=== PATIENT | female | born 1990 | race Caucasian/White ===

== ENCOUNTER 2024-06-30 15:30 | Emergency (ER) | payer OTHER, SELFPAY ==
[2024-06-30 15:32] VITALS: BP 114/66
[2024-06-30 15:48] LABS: % Basophils 0.4 % (0-2); % Eosinophils 2.5 % (0-6); % Immature Granulocytes 0.2 % (0-0.5); % Lymphocytes 25.2 % (20.5-51.1); % Monocytes 8.3 % (1.7-9.3); % Neutrophils 63.4 % (42.2-75.2); Absolute Eosinophils 0.1 10^3/uL (0-0.7); Absolute Lymphocytes 1.3 10^3/uL (1.2-3.4); Absolute Monocytes 0.4 10^3/uL (0.1-0.6); Absolute Neutrophils 3.4 10^3/uL (1.4-6.5); Hematocrit 36.5 % (37.0-47.0); Hemoglobin 12.6 g/dL (12.0-16.0); Mean Corp Hgb Conc. 34.5 g/dL (33.0-37.0); Mean Corpuscular Volume 89.7 fL (81.0-99.0); Nucleated Red Blood Cells % 0 %; Platelet Count 242 10^3/uL (130-400); Red Blood Cell Count 4.07 10^6/uL (4.20-5.40); Red Cell Dist. Width 13.2 % (11.5-14.5); White Blood Cell Count 5.3 10^3/uL (4.8-10.8)
[2024-06-30 16:00] LABS: HCG, Serum Qualitative Screen Negative
[2024-06-30 16:03] LABS: ALT (SGPT) 24 U/L (0-35); AST (SGOT) 29 U/L (14-36); Albumin 4.2 g/dl (3.5-5.0); Alkaline Phosphatase 67 U/L (38-126); Blood Urea Nitrogen 11 mg/dl (7-17); Carbon Dioxide 25 mmol/L (22-30); Chloride 103 mmol/L (98-107); Glucose 91 mg/dl (70-99); Lipase 40 U/L (23-300); Potassium 4.1 mmol/L (3.5-5.1); Sodium 135 mmol/L (135-145); Total Bilirubin 0.6 mg/dl (0.2-1.3); Total Protein 6.7 g/dl (6.3-8.2); eGFR > 60.00
[2024-06-30 17:29] LABS: Urine Albumin Negative (Neg - Trace); Urine Bilirubin Negative (Negative); Urine Character Clear (Clear); Urine Glucose Negative (Negative); Urine Ketone Negative (Negative); Urine Leukocyte Negative (Negative); Urine Nitrite Negative (Negative); Urine Occult Blood Negative (Negative); Urine Urobilinogen Negative (Neg - 1+)
[2024-06-30 17:30] LABS: Urine Color Straw
--- NOTE | 2024-06-30 19:54 | ED.GENMED ---
History of Present Illness
General
Chief Complaint: Abdominal Pain
Source: patient
Exam Limitations: none
Time Seen by Provider: 06/30/24 19:24
History of Present Illness
History of Present Illness:
33yoF with a history of fibromyalgia, panic disorder, and anxiety presenting with her for evaluation of abdominal pain. Symptoms began 1 week ago while she was in [facility] for her honeymoon. The pain was initially mild but has been
gradually worsening. She reports a cramping sensation throughout her lower abdomen which radiates to the low back. The pain seems to be worse on the left side today. She also has some pain in her upper thighs and left shoulder. She has had
low-grade fevers of 99 at home. She reports nausea but denies vomiting. No diarrhea, dysuria, vaginal bleeding, vaginal discharge. Last bowel movement was earlier today. Previous abdominal surgeries include an appendectomy.
Phy Exam
Physical Exam
Physical Exam:
Anxious, tearful
General Physical Exam
General Presentation: well appearing
General age: appears stated age
General Skin: warm and dry
General Habitus: normal
General Mental: alert and anxious
ENT Exam
ENT Exam: normocephalic
Cardiovascular Exam
Cardiovascular Exam: regular rate/rhythm and no murmur
Pulmonary Exam
Pulmonary Exam: lungs clear, no respiratory distress, no rales, no crackles and no rhonchi
Gastrointestinal Exam
Gastrointestinal Exam: soft, non distended, no cva tenderness and other (+Tenderness throughout lower abdomen, worse in LLQ. Abdomen soft, non-distended. No rebound or guarding. )
Neurological Exam
Neurological Exam: alert
[place] Coma Scale
Eye Opening: Spontaneous
Verbal Response: Oriented
Motor Response: Obeys Commands
GCS Total Score: 15
Skin Exam
Skin Exam: normal color and warm/dry
Psychiatric Exam
Psychiatric Exam: anxious
Course
Orders/Labs/Results
Orders:
Orders
06/30/24 15:37
Test Result ONCE
06/30/24 15:42
Complete Blood Count/With Diff Urgent
Comprehensive Metabolic Panel Urgent
HCG, Serum Qualitative Screen Urgent
Comment: Notify provider if positive test present
Lipase Urgent
06/30/24 17:15
Urinalysis Reflex To Culture Urgent
Date Specimen was Collected: 06/30/24
Time Specimen was Collected: 17:12
06/30/24 19:53
0.9% Sodium Chloride 500 ml [Nss] 500 ml IV BOLUS
Iohexol [Omnipaque] See Protocol PO NOW STA
Ketorolac [Toradol] 15 mg IV NOW STA
06/30/24 19:54
CT Abd/pel W Iv And Oral Contr Urgent
Comment:
Reason For Exam: Lower abd pain, back pain
06/30/24 20:56
COVID-19 Antigen Urgent
Source: Nasal Swab
Influenza A+B Rapid Molecular Urgent
MAGDIEL Source: Nasal Swab
Specimen Description:
06/30/24 21:18
Ondansetron Injectable [Zofran] 4 mg IV NOW STA
06/30/24 21:43
Morphine Sulfate 4 mg .ROUTE .STK-MED ONE
06/30/24 21:48
Morphine Sulfate 4 mg IV NOW STA
06/30/24 21:49
Morphine Sulfate 2 mg IV NOW STA
06/30/24 23:46
Enema- Treatment ONCE
Type: Milk of Molasses
07/01/24 01:43
Lactulose [Duphalac/Chronulac] 20 grams PO ONCE ONE
Abnormal Lab Results
06/30/24
15:42
RBC 4.07 L 10^6/uL
(4.20-5.40)
Hct 36.5 L %
(37.0-47.0)
06/30/24 15:42
06/30/24 15:42
Vital Signs
Initial and Last Documented VS:
Initial Vital Signs
Temp Pulse Resp BP Pulse Ox
97.9 F 68 16 114/66 98
06/30/24 15:32 06/30/24 15:32 06/30/24 15:32 06/30/24 15:32 06/30/24 15:32
Last Documented Vital Signs
Temp Pulse Resp BP Pulse Ox
97.9 F 47 16 107/59 97
06/30/24 15:32 06/30/24 20:32 06/30/24 20:32 06/30/24 20:32 06/30/24 20:32
MDM/Problems Addressed
Differential Diagnosis Includes:
33yoF here with lower abdominal pain x 1 week that is worsening. Radiates to lower back. Patient is afebrile and hemodynamically stable. She is anxious and tearful during exam. No signs of peritonitis on abdominal exam. Differential diagnosis
includes but is not limited to: Diverticulitis, ovarian cyst, UTI, colitis, constipation, musculoskeletal, nonspecific abdominal
Initial ED plan: Abdominal labs, hCG, and UA obtained in triage. Labs unremarkable including normal white count. hCG negative. UA bland without signs of infection. Will proceed with CT abdomen with IV/PO contrast. IV Toradol and fluid bolus for
symptoms.
*Critical Care Note
Total Time (30-74mins, 75-104mins- exclusive of procedures): Not Applicable
Update Note
Update Note:
Preliminary vision radiology report for CT scan shows large amount of stool in the colon. There is also mild urinary bladder wall thickening although urinalysis is normal. No other acute findings noted. Patient with persistent discomfort on
reassessment. She was given a milk of molasses enema and was able to have 2 small bowel movements. No indication for hospitalization at this time. Patient reports continued discomfort, will give dose of lactulose to go home with. Supportive care
discussed. She was advised to follow-up with her PCP and GI. ED return precautions discussed. Patient discharged in stable condition.
ED Attending Note
-
Portions of this chart may have been created with voice recognition software.� Occasional wrong word or��sound alike� substitutions may have occurred due to the inherent limitations of voice recognition software.
Discharge Plan
Departure
Patient Disposition: Home (Routine Discharge)
Date of Disposition: 07/01/24
Time of Disposition: 01:44
Patient with high blood pressure during this ER visit?: No
Discharge Problem:
Constipation, Lower abdominal pain
Referrals:
Laurence Romero DO [Family Provider] -
Diandra Cason MD [Active] -
Activity Restrictions/Additional Instructions:
Take lactulose dose when you get home. Increase your Miralax to twice daily until bowel movements regulate.
Please follow-up with your family doctor and gastroenterology. Return to the ER with any new or worsening symptoms.
Interventions
Interventions:
*Risk Screen - Suicide Last Done: 06/30/24 15:32
*General Assessment Last Done: 06/30/24 15:32
*Neglect/Abuse Screening Last Done: 07/01/24 02:16
ED- Fall Risk Assessment Last Done: 06/30/24 20:00
*ED COVID-19 Vaccine History Last Done: 06/30/24 15:32
*Nursing Disposition Last Done: 07/01/24 02:16
UV-Jofjgh-Hogldxgurp Assessment Last Done: 06/30/24 20:00
Discharge Date and Time
Discharge Date/Time: 07/01/24 02:17
Print Language: RUSSIAN
[2024-06-30] MEDS: OMNIPAQUE 50 ML PO (20:15)
[2024-06-30] MEDS: NSS 500 IV (20:15)
[2024-06-30] MEDS: TORADOL 15 MG IV (20:15)
[2024-06-30 20:32] VITALS: BP 107/59; BMI 19.0
[2024-06-30 21:18] LABS: COVID-19 Antigen Negative (Negative)
[2024-06-30] MEDS: ZOFRAN 4 MG IV (21:32)
--- NOTE | 2024-06-30 21:40 | EDRN ---
Patient was nauseated so gave Zofran, however re reports that the toradol did not help at all, spoke with provider who will order more medications.
[2024-06-30] MEDS: MORPHINE SULFATE 2 MG IV (21:50)
--- NOTE | 2024-07-01 01:05 | EDRN ---
Patient had 2 small bowl movements, slightly tearful with at bedside, reports if tests look ok she is ok to go home, will update provider.
[2024-07-01] MEDS: DUPHALAC/CHRONULAC 20 GRAMS PO (01:55)
== END 2024-07-01 02:17 | disposition home or self-care (01) ==
LOC: EMR 15:30
PROVIDERS: Emergency Medicine; Physician Assistant; Student in an Organized Health Care Education/Training Program; EMERGENCY PHYSICIAN Student in an Organized Health Care Education/Training Program; FAMILY PHYSICIAN Family Medicine
DX: K59.00 Constipation, unspecified (principal); R10.30 Lower abdominal pain, unspecified; Z11.52 Encounter for screening for COVID-19
CPT/HCPCS: 99285; 96374; 96375 ×2; 96361; 74177; 80053; 81003; 83690; 84703; 85025; 87502; 87811; Q9967

== ENCOUNTER 2024-07-03 16:19 | Emergency (ER) | payer OTHER, SELFPAY ==
[2024-07-03 16:49] VITALS: BP 111/66
--- NOTE | 2024-07-03 16:50 | ED.GENMED ---
ED Provider Triage
<Tanvir Rod PA-C - Last Filed: 07/03/24 16:51>
-
Patient seen by provider in Triage?: Seen in Triage
Attestation: A medical screening examination has been initiated by a qualified medical provider. Based on the assessment performed at this time, it has been determined that an emergent medical condition may exist and the patient has been informed
that further medical evaluation and possible additional diagnostic testing may be needed.
HPI: 33-year-old female presenting back to the emergency department for reevaluation of recurring abdominal pain. Patient seen in the ER 3 days ago for the same and was diagnosed with constipation. Received enema and laxatives here. Reportedly
felt a little bit better but symptoms restarted and worsened over the last 24 hours. Had a virtual visit with primary care provider today and was recommended to come back to the ER. Patient had CT done at her last visit here. Previous
appendectomy. Labs ordered.
GENERAL: Alert , in no apparent distress
EYE: No visual abnormalities.
NECK: Trachea midline
ENT: No visible abnormalities.
LUNGS: No acute respiratory distress
NEUROLOGICAL: Alert and oriented
SKIN: Skin intact. No visible changes.
MUSCULOSKELETAL: Moving extremities normally
PSYCH: Normal and appropriate interaction.
This is a medical evaluation conducted in person to initiate diagnostic evaluation and provide initial therapeutics. Please see further documentation by the treating clinician. 33-year-old female presenting to the ER for reevaluation after being
seen this past Tuesday
History of Present Illness
<Tanvir Rod PA-C - Last Filed: 07/03/24 16:51>
General
Chief Complaint: Abdominal Symptoms
Time Seen by Provider: 07/03/24 20:54
<Bailey Driver NP - Last Filed: 07/03/24 23:59>
General
Source: patient and spouse
Exam Limitations: none
Nursing documentation reviewed up to this point in time: agreed with
History of Present Illness
History of Present Illness:
33-year-old female with history of fibromyalgia, chronic constipation, chronic pain 'all over my body,' presenting with retching and abdominal pain.
She states abdominal pain started on 06/23 while in [facility] on her honeymoon, started with nausea and then the abdominal pain, and states that on her lower back. She has had similar abdominal pain in the past but it is usually in her upper
abdomen What is new, she states, is that the abdominal pain is now all over including her lower abdomen and dry heaving however looking at her record from 3 days ago there was both lower abdominal pain, low back pain with nausea, similar to today.
Patient was here 3 days ago for abdominal pain and diagnosed with constipation. She states she has been having daily small BMs since the mild and molasses enema she received that visit. Given a dose of Lactulose at discharge to take home.
Past History
<Bailey Driver, INTEGRITY ANALYST - Last Filed: 07/03/24 23:59>
Past History
ED Past Medical History: Fibromyalgia and Psychiatric (PTSD, panic disorder)
ED Past Surgical History: Appendectomy and Gynecological (D&C)
Social History
Tobacco: Non-smoker
Alcohol: None
Personal:
Living: with family
Employment: Not employed (due to chronic pain)
Review of Systems
<Bailey Driver, INTEGRITY ANALYST - Last Filed: 07/03/24 23:59>
Review of Systems
Allergies reviewed?: Yes
All Other Systems: ROS reviewed and negative except as documented in HPI and ROS
Constitutional: Denies fever
Respiratory: Denies trouble breathing
Cardiac: Denies chest pain
ABD/GI: Reports abdominal pain, nausea and constipated; Denies vomiting or diarrhea
: Denies dysuria, frequency, difficulty voiding or urgency
Musculoskeletal: Reports other (Chronic generalized pain)
Skin: Reports no symptoms
Neurological: Reports no symptoms
Phy Exam
<Bailey V. Day, INTEGRITY ANALYST - Last Filed: 07/03/24 23:59>
Physical Exam
Physical Exam:
GENERAL: Crying, moaning at times, no tears. A&Ox3.
CONSTITUTIONAL: Afebrile.
EYES: clear, conjunctivae normal
ENMT: moist mucus membranes
RESPIRATORY: Regular respirations, nonlabored, lungs clear.
CARDIOVASCULAR: Regular rate and rhythm, no murmurs, no rubs.
GI: Soft, generally tender to palpations, nondistended, normal BS
Rectal: no stool in rectal vault
MUSCULOSKELETAL: Moves with ease. Well perfused.
SKIN: Warm, dry, pink
PSYCH: Anxious mood and affect. Well kept
NEUROLOGIC: Awake, alert and oriented. No focal neurological deficits
Course
<Tanvir Rod PA-C - Last Filed: 07/03/24 16:51>
Orders/Labs/Results
Orders:
Orders
07/03/24 16:49
CR Obstruct Series W/pa Chest Urgent
Comment:
Reason For Exam: recurring abd pain, recent CT, constipation
07/03/24 16:50
Test Result ONCE
07/03/24 17:07
Complete Blood Count/With Diff Urgent
Comprehensive Metabolic Panel Urgent
HCG, Serum Qualitative Screen Urgent
Lipase Urgent
07/03/24 21:26
Ondansetron Injectable [Zofran] 4 mg IV NOW STA
07/03/24 21:27
0.9% Sodium Chloride 1000 ml [Nss] 1,000 ml IV BOLUS
07/03/24 21:37
Ketorolac [Toradol] 15 mg IV NOW STA
07/03/24 22:50
Magnesium Citrate [Citroma] 300 ml PO ONCE ONE
Abnormal Lab Results
07/03/24
17:07
WBC 3.7 L 10^3/uL
(4.8-10.8)
RBC 4.18 L 10^6/uL
(4.20-5.40)
Monocytes % 11.0 H %
(1.7-9.3)
BUN 6 L mg/dl
(7-17)
07/03/24 17:07
07/03/24 17:07
Vital Signs
Initial and Last Documented VS:
Initial Vital Signs
Temp Pulse Resp BP Pulse Ox
98.7 F 62 20 111/66 99
07/03/24 16:49 07/03/24 16:49 07/03/24 16:49 07/03/24 16:49 07/03/24 16:49
Last Documented Vital Signs
Temp Pulse Resp BP Pulse Ox
97.8 F 41 20 127/67 98
07/03/24 20:55 07/03/24 23:14 07/03/24 16:49 07/03/24 23:14 07/03/24 23:14
<Bailye Driver, INTEGRITY ANALYST - Last Filed: 07/03/24 23:59>
Orders/Labs/Results
Orders:
Orders
07/03/24 16:49
CR Obstruct Series W/pa Chest Urgent
Comment:
Reason For Exam: recurring abd pain, recent CT, constipation
07/03/24 16:50
Test Result ONCE
07/03/24 17:07
Complete Blood Count/With Diff Urgent
Comprehensive Metabolic Panel Urgent
HCG, Serum Qualitative Screen Urgent
Lipase Urgent
07/03/24 21:26
Ondansetron Injectable [Zofran] 4 mg IV NOW STA
07/03/24 21:27
0.9% Sodium Chloride 1000 ml [Nss] 1,000 ml IV BOLUS
07/03/24 21:37
Ketorolac [Toradol] 15 mg IV NOW STA
07/03/24 22:50
Magnesium Citrate [Citroma] 300 ml PO ONCE ONE
Abnormal Lab Results
07/03/24
17:07
WBC 3.7 L 10^3/uL
(4.8-10.8)
RBC 4.18 L 10^6/uL
(4.20-5.40)
Monocytes % 11.0 H %
(1.7-9.3)
BUN 6 L mg/dl
(7-17)
07/03/24 17:07
07/03/24 17:07
Vital Signs
Initial and Last Documented VS:
Initial Vital Signs
Temp Pulse Resp BP Pulse Ox
98.7 F 62 20 111/66 99
07/03/24 16:49 07/03/24 16:49 07/03/24 16:49 07/03/24 16:49 07/03/24 16:49
Last Documented Vital Signs
Temp Pulse Resp BP Pulse Ox
97.8 F 41 20 127/67 98
07/03/24 20:55 07/03/24 23:14 07/03/24 16:49 07/03/24 23:14 07/03/24 23:14
<Bailey Driver, INTEGRITY ANALYST - Last Filed: 07/03/24 23:59>
MDM/Problems Addressed
Differential Diagnosis Includes:
exacerbation of chronic abdominal pain
MDM/Problems Addressed:
33-year-old female with history of fibromyalgia, chronic constipation, chronic pain 'all over my body,' presenting with retching and abdominal pain.
She states abdominal pain started on 06/23 while in [facility] on her honeymoon, started with nausea and then the abdominal pain, and states that on her lower back. She has had similar abdominal pain in the past but it is usually in her upper
abdomen What is new, she states, is that the abdominal pain is now all over including her lower abdomen and dry heaving however looking at her record from 3 days ago there was both lower abdominal pain, low back pain with nausea, similar to today.
Patient was here 3 days ago for abdominal pain and diagnosed with constipation. She states she has been having daily small BMs since the mild and molasses enema she received that visit. Given a dose of Lactulose at discharge to take home.
Afebrile, crying but no tears, moaning out at times grabbing her stomach, retching at times, no emesis
Three days ago here for similar symptoms, had extensive w/u including abd CT w IV/po contrast, labs, U/A, HCG, all neg. IV Toradol for pain given.
10:45 PM:
After Toradol, Zofran and IV fluids patient states she is feeling much better and is requesting to go home
Rx for Toradol and Zofran sent to her pharmacy
She has an appointment with GI next month
HR 40's pt and states this is not unusual for her. Her doctors are aware. HR is 50's - 60's except when sleeping or resting then goes into 40's
<Bailey Driver NP - Last Filed: 07/03/24 23:59>
*Critical Care Note
Total Time (30-74mins, 75-104mins- exclusive of procedures): Not Applicable
ED Attending Note
<Tanvir Rod PA-C - Last Filed: 07/03/24 16:51>
-
Portions of this chart may have been created with voice recognition software.� Occasional wrong word or��sound alike� substitutions may have occurred due to the inherent limitations of voice recognition software.
Discharge Plan
Departure
Patient Disposition: Home (Routine Discharge)
Date of Disposition: 07/03/24
Time of Disposition: 22:48
Patient with high blood pressure during this ER visit?: No
Condition: Good
Discharge Problem:
Abdominal pain
Instructions: Constipation, Adult (DC), Abdominal Pain
Prescriptions:
New
ketorolac 10 mg tablet
10 mg PO Q8H PRN (Reason: Pain) 1 Days Qty: 15 0RF
ondansetron 4 mg tablet,disintegrating
4 mg PO Q8H PRN (Reason: nausea and vomiting) 4 Days Qty: 12 0RF
Referrals:
Laurence Romero, [Family Provider] -
Activity Restrictions/Additional Instructions:
As we discussed, I sent a prescription to your pharmacy for Toradol to use as needed for pain and also for Zofran to use as needed for nausea and vomiting
Be sure to have food in your stomach when you take the Toradol to avoid upset stomach
Keep your appointment with your GI doctor next month
Take the entire bottle of Magnesium Citrate tonight or tomorrow and stay near a bathroom until you have a good BM.
Interventions
Interventions:
*Risk Screen - Suicide Last Done: 07/03/24 16:49
*General Assessment Last Done: 07/03/24 16:49
*Neglect/Abuse Screening Last Done: 07/03/24 16:49
ED- Fall Risk Assessment Last Done: 07/03/24 23:14
*ED COVID-19 Vaccine History Last Done: 07/03/24 23:14
*Nursing Disposition Last Done: 07/03/24 23:14
WX-Fvjzcp-Anlwspjixq Assessment Last Done: 07/03/24 20:56
Discharge Date and Time
Discharge Date/Time: 07/03/24 23:15
Print Language: NEPALI
[2024-07-03 17:23] LABS: % Basophils 0.8 % (0-2); % Eosinophils 2.7 % (0-6); % Immature Granulocytes 0.3 % (0-0.5); % Lymphocytes 34.5 % (20.5-51.1); % Neutrophils 50.7 % (42.2-75.2); Absolute Eosinophils 0.1 10^3/uL (0-0.7); Absolute Lymphocytes 1.3 10^3/uL (1.2-3.4); Absolute Monocytes 0.4 10^3/uL (0.1-0.6); Absolute Neutrophils 1.9 10^3/uL (1.4-6.5); Hematocrit 37.7 % (37.0-47.0); Hemoglobin 12.9 g/dL (12.0-16.0); Mean Corp Hgb Conc. 34.2 g/dL (33.0-37.0); Mean Corpuscular Hgb 30.9 pg (27.0-31.0); Mean Corpuscular Volume 90.2 fL (81.0-99.0); Mean Platelet Volume 8.8 fL (7.4-10.4); Nucleated Red Blood Cells % 0 %; Platelet Count 239 10^3/uL (130-400); Red Blood Cell Count 4.18 10^6/uL (4.20-5.40); White Blood Cell Count 3.7 10^3/uL (4.8-10.8)
[2024-07-03 17:28] LABS: HCG, Serum Qualitative Screen Negative
[2024-07-03 17:35] LABS: ALT (SGPT) 32 U/L (0-35); AST (SGOT) 31 U/L (14-36); Albumin 4.5 g/dl (3.5-5.0); Alkaline Phosphatase 69 U/L (38-126); Blood Urea Nitrogen 6 mg/dl (7-17); Calcium 8.9 mg/dl (8.4-10.2); Carbon Dioxide 26 mmol/L (22-30); Chloride 101 mmol/L (98-107); Glucose 88 mg/dl (70-99); Sodium 135 mmol/L (135-145); Total Bilirubin 0.6 mg/dl (0.2-1.3); Total Protein 6.7 g/dl (6.3-8.2); eGFR > 60.00
[2024-07-03 17:36] LABS: Lipase 31 U/L (23-300)
[2024-07-03 20:55] VITALS: BP 144/62
[2024-07-03 21:35] VITALS: BP 103/65
[2024-07-03] MEDS: NSS 1000 IV (22:02)
[2024-07-03] MEDS: TORADOL 15 MG IV (22:03)
[2024-07-03] MEDS: ZOFRAN 4 MG IV (22:03)
[2024-07-03] MEDS: CITROMA 300 ML PO (22:59)
[2024-07-03 23:14] VITALS: BP 127/67
== END 2024-07-03 23:15 | disposition home or self-care (01) ==
LOC: EMR 16:19
PROVIDERS: Physician Assistant Medical; EMERGENCY PHYSICIAN Student in an Organized Health Care Education/Training Program; FAMILY PHYSICIAN Family Medicine
DX: R10.9 Unspecified abdominal pain (principal)
CPT/HCPCS: 99284; 96374; 96375; 96361; 74022; 80053; 83690; 84703; 85025